=== PATIENT | female | born 1985 | race Caucasian/White ===

== ENCOUNTER 2018-07-16 00:31 | Emergency (ER) | payer OTHER ==
[~2018-07-16] VITALS: Ht 160 cm; Wt 82.6 kg
--- NOTE | 2018-07-16 01:20 | PHYS DOC ---
Past Medical History Past Medical History: Migraines Adult General Chief Complaint Chief Complaint: HEADACHE HPI HPI Patient is a 33 year old F who presents with headache. She has a history of migraines and states that this most recent headache began on Saturday, and is usually triggered by weather changes. She states that shortly after the headache began a clock fell off the wall about five pounds hit her on top of forehead only. and hit her in the head which worsened the headache. The pain is a dull and heavy pain that is throughout the whole head. She reports some nausea and dizziness, along with double vision when she was struck with the clock. She denies any vomiting, constipation, diarrhea, fever, chills, or sharp stabbing sensations. Review of Systems Review of Systems Constitutional: Denies fever or chills [] Eyes: Denies change in visual acuity, redness, or eye pain [] HENT: Denies nasal congestion or sore throat [] Respiratory: Denies cough or shortness of breath [] Cardiovascular: No additional information not addressed in HPI [] GI: Denies abdominal pain, vomiting, bloody stools or diarrhea [] : Denies dysuria or hematuria [] Musculoskeletal: Denies back pain or joint pain [] Integument: Denies rash or skin lesions [] Neurologic: Reports headache [] Endocrine: Denies polyuria or polydipsia [] All other systems were reviewed and found to be within normal limits, except as documented in this note. Current Medications Current Medications Current Medications Medications (Trade) Dose Ordered Sig/Sally Start Time Stop Time Status Last Admin Dose Admin Benztropine Mesylate (Cogentin) 2 mg 1X ONCE 07/16/18 02:30 07/16/18 02:31 DC 07/16/18 02:24 2 MG Diphenhydramine HCl (Benadryl) 50 mg 1X ONCE 07/16/18 01:45 07/16/18 01:46 DC 07/16/18 01:46 50 MG Ketorolac Tromethamine (Toradol 15mg Vial) 15 mg 1X ONCE 07/16/18 01:45 07/16/18 01:46 DC 07/16/18 01:46 15 MG Prochlorperazine Edisylate (Compazine) 10 mg 1X ONCE 07/16/18 01:45 07/16/18 01:46 DC 07/16/18 01:46 10 MG Sodium Chloride 1,000 ml @ 1,000 mls/hr 1X ONCE 07/16/18 01:45 07/16/18 02:36 DC 07/16/18 01:47 1,000 MLS/HR Allergies Allergies Allergies Coded Allergies Type Severity Reaction Last Updated Verified No Known Drug Allergies 07/16/18 No Physical Exam Physical Exam Constitutional: Well developed, well nourished, no acute distress, non-toxic appearance. [] HENT: Normocephalic, atraumatic, bilateral external ears normal, oropharynx moist, no oral exudates, nose normal. [] Eyes: PERRLA, EOMI, conjunctiva normal, no discharge. [] Neck: Normal range of motion, no tenderness, supple, no stridor. [] Cardiovascular:Heart rate regular rhythm, no murmur [] Lungs & Thorax: Bilateral breath sounds clear to auscultation [] Abdomen: Bowel sounds normal, soft, no tenderness, no masses, no pulsatile masses. [] Skin: Warm, dry, no erythema, no rash. [] Back: No tenderness, no CVA tenderness. [] Extremities: No tenderness, no cyanosis, no clubbing, ROM intact, no edema. [] Neurologic: Alert and oriented X 3, normal motor function, normal sensory function, no focal deficits noted. [] Psychologic: Affect normal, judgement normal, mood normal. [] Current Patient Data Vital Signs Vital Signs Date Time Temp Pulse Resp B/P (MAP) Pulse Ox O2 Delivery O2 Flow Rate FiO2 07/16/18 02:25 71 24 99 07/16/18 00:50 98.5 158/88 (111) 98.5 Lab Values Laboratory Tests Test 07/16/18 01:01 POC Urine HCG, Qualitative Hcg negative (Negative) EKG EKG [] Course & Med Decision Making Course & Med Decision Making Pertinent Labs and Imaging studies reviewed. (See chart for details) []Patient is neuro intact his symptoms most consistent with migraine did get hit by a clock but no loss of consciousness by [place] head CT rule no need for imaging TMs were clear bilaterally patient was given usual migraine cocktail despite the Benadryl she still had some akathisia with Compazine we then gave Cogentin and she felt much better and was discharged home in improved condition Dragon Disclaimer Dragon Disclaimer This electronic medical record was generated, in whole or in part, using a voice recognition dictation system. Departure Departure Impression: Primary Impression: Migraine Disposition: HOME, SELF-CARE Condition: STABLE Referrals: UNKNOWN PCP NAME (PCP) LISA NATION MD July 16, 2018 01:20
[2018-07-16] MEDS ORDERED: PROCHLORPERAZINE 10 MG/2 ML VIAL. IV ONE (01:45)
[2018-07-16] MEDS ORDERED: KETOROLAC 15 MG/ML VIAL. IV ONE (01:45)
[2018-07-16] MEDS ORDERED: diphenhydrAMINE 50 MG/ML VIAL IVP ONE (01:45)
[2018-07-16] MEDS ORDERED: IV NORMAL SALINE 1000ML BAG 1,000 ML IV ONE (01:45)
[2018-07-16 02:25] VITALS: BP 136/89
[2018-07-16] MEDS ORDERED: BENZTROPINE MESYLATE 2 MG/2 ML VIAL. IV ONE (02:30)
== END 2018-07-16 02:36 | disposition home or self-care (01) ==
LOC: ER 00:31
DX: G43.909 Migraine, unspecified, not intractable, without status migrainosus (principal); R42 Dizziness and giddiness; R11.0 Nausea; W20.8XXA Other cause of strike by thrown, projected or falling object, initial encounter; Y93.89 Activity, other specified; Y92.89 Other specified places as the place of occurrence of the external cause; Y99.8 Other external cause status
CPT/HCPCS: 81025; 96361; 96374; 96375; 99284; J0515; J0780; J1200; J1885; J7030

== ENCOUNTER 2019-03-05 10:10 | Emergency (ER) | payer OTHER ==
[2019-03-05] MEDS ORDERED: IBUPROFEN 400 MG TABLET. PO ONE (10:45)
[2019-03-05] MEDS ORDERED: IPRATRPIUM/ALBUTEROL 0.5/2.5MG 3 ML NEBU. NEB ONE (10:45)
[2019-03-05] MEDS ORDERED: ALBUTEROL SULFATE 2.5 MG/3 ML NEBU. NEB ONE (10:45)
[2019-03-05 11:15] LABS: BILIRUBIN,URINE NEGATIVE (NEG); CLARITY,URINE CLEAR; COLOR,URINE YELLOW; NITRITE,URINE POSITIVE (NEG); PROTEIN,URINE 30 mg/dL (NEG-TRACE)
[2019-03-05 11:25] LABS: SQUAMOUS EPITHELIAL CELL,UR FEW /LPF
[2019-03-05 11:26] LABS: BACTERIA,URINE MANY /HPF (0-FEW)
--- NOTE | 2019-03-05 11:26 | RAD ---
AP and Lateral Views of the Chest 03/05/2019 10:44 AM Indication: Cough, fever x5 days. Comparison: None Findings: There is no focal consolidation or infiltrate identified. The cardiomediastinal silhouette is within normal limits. There is no evidence of pneumothorax or pleural effusion. No acute osseous abnormalities are identified. Impression: No evidence of acute cardiopulmonary process. Electronically signed by: Darius Dumont MD (03/05/2019 11:23 AM) [id number]
[2019-03-05 11:27] LABS: HYALINE CASTS, URINE FEW /HPF
--- NOTE | 2019-03-05 11:32 | PHYS DOC ---
Past Medical History Past Medical History: Migraines Alcohol Use: None Adult General Chief Complaint Chief Complaint: FEVER HPI HPI Patient is a 34 year old female, accompanied by her significant other, who presents to the emergency department with complaints of a productive cough with white sputum, congestion, fatigue, body aches, shortness of breath, fever, and episodes of confusion for the last 5 days. Patient states she does smoke about half pack cigarettes a day. She denies any nausea, vomiting, diarrhea, rash, abdominal pain, increased urinary frequency, hematuria, dysuria, or back pain. She is alert and oriented to person, place, situation, and year at this time. Review of Systems Review of Systems Constitutional: see HPI Eyes: Denies change in visual acuity, redness, or eye pain; see HPI [] HENT: Denies nasal congestion or sore throat [] Respiratory: See HPI Cardiovascular: No additional information not addressed in HPI [] GI: Denies abdominal pain, nausea, vomiting, or diarrhea [] : Denies dysuria or hematuria [] Musculoskeletal: Denies back pain or joint pain [] Integument: Denies rash or skin lesions [] Neurologic: Denies headache, focal weakness or sensory changes; see HPI [] Complete systems were reviewed and found to be within normal limits, except as documented in this note. Current Medications Current Medications Current Medications Medications (Trade) Dose Ordered Sig/Sally Start Time Stop Time Status Last Admin Dose Admin Albuterol Sulfate (Ventolin Neb Soln) 2.5 mg 1X ONCE 03/05/19 10:45 03/05/19 10:47 DC 03/05/19 11:05 2.5 MG Albuterol/ Ipratropium (Duoneb) 3 ml 1X ONCE 03/05/19 10:45 03/05/19 10:47 DC 03/05/19 11:05 3 ML Ceftriaxone Sodium (Rocephin) 1 gm 1X ONCE 03/05/19 12:30 03/05/19 12:32 DC 03/05/19 12:55 1 GM Ibuprofen (Motrin) 600 mg 1X ONCE 03/05/19 10:45 03/05/19 10:47 DC 03/05/19 11:13 600 MG Methylprednisolone Sodium Succinate (SOLU-Medrol 125MG VIAL) 125 mg 1X ONCE 03/05/19 12:00 03/05/19 12:01 DC 03/05/19 12:55 125 MG Sodium Chloride 1,000 ml @ 1,000 mls/hr 1X ONCE 03/05/19 12:00 03/05/19 12:59 DC 03/05/19 12:56 1,000 MLS/HR Allergies Allergies Allergies Coded Allergies Type Severity Reaction Last Updated Verified No Known Drug Allergies 07/16/18 No Physical Exam Physical Exam Constitutional: Well developed, well nourished, no acute distress, non-toxic appearance. [] HENT: Normocephalic, atraumatic, bilateral external ears normal, Bilateral TMs normal, posterior pharynx normal, oropharynx moist, no oral exudates, nose normal. [] Eyes: PERRLA, EOMI, conjunctiva normal, no discharge. [] Neck: Normal range of motion, no stridor. [] Cardiovascular:Heart rate regular tachycardic rhythm, no murmur [] Lungs & Thorax: Bilateral breath sounds coarse and diminished bilaterally, Respirations even and unlabored, no retractions, no respiratory distress Abdomen: soft, no tenderness, no masses, no pulsatile masses. [] Skin: Flushed, hot, dry, no rash Back: No CVA tenderness. [] Extremities: No cyanosis, no clubbing, ROM intact, no edema. [] Neurologic: Alert and oriented X 3, normal motor function, normal sensory function, no focal deficits noted. [] Psychologic: Affect normal, judgement normal, mood normal. [] Current Patient Data Vital Signs Vital Signs Date Time Temp Pulse Resp B/P (MAP) Pulse Ox O2 Delivery O2 Flow Rate FiO2 03/05/19 15:41 94 16 144/62 (89) 96 Room Air 03/05/19 13:41 2.0 03/05/19 13:10 97.7 97.7 Lab Values Laboratory Tests Test 03/05/19 11:00 03/05/19 11:07 03/05/19 12:16 03/05/19 14:25 Urine Collection Type Unknown Urine Color Yellow Urine Clarity Clear Urine pH 6.0 Urine Specific Dailey 1.010 Urine Protein 30 mg/dL (NEG-TRACE) Urine Glucose (UA) Negative mg/dL (NEG) Urine Ketones (Stick) Negative mg/dL (NEG) Urine Blood Trace (NEG) Urine Nitrite Positive (NEG) Urine Bilirubin Negative (NEG) Urine Urobilinogen Dipstick 1.0 mg/dL (0.2 mg/dL) Urine Leukocyte Esterase Moderate (NEG) Urine RBC 1-2 /HPF (0-2) Urine WBC 5-10 /HPF (0-4) Urine Squamous Epithelial Cells Few /LPF Urine Bacteria Many /HPF (0-FEW) Urine Hyaline Casts Few /HPF Urine Mucus Slight /LPF Urine Opiates Screen Neg (NEG) Urine Methadone Screen Neg (NEG) Urine Barbiturates Neg (NEG) Urine Phencyclidine Screen Neg (NEG) Urine Amphetamine/Methamphetamine Neg (NEG) Urine Benzodiazepines Screen Neg (NEG) Urine Cocaine Screen Neg (NEG) Urine Cannabinoids Screen Neg (NEG) Urine Ethyl Alcohol Neg (NEG) POC Urine HCG, Qualitative Hcg negative (Negative) White Blood Count 7.9 x10^3/uL (4.0-11.0) Red Blood Count 4.74 x10^6/uL (3.50-5.40) Hemoglobin 12.5 g/dL (12.0-15.5) Hematocrit 37.4 % (36.0-47.0) Mean Corpuscular Volume 79 fL (79-100) Mean Corpuscular Hemoglobin 26 pg (25-35) Mean Corpuscular Hemoglobin Concent 33 g/dL (31-37) Red Cell Distribution Width 15.2 % (11.5-14.5) H Platelet Count 247 x10^3/uL (140-400) Neutrophils (%) (Auto) 54 % (31-73) Lymphocytes (%) (Auto) 32 % (24-48) Monocytes (%) (Auto) 10 % (0-9) H Eosinophils (%) (Auto) 3 % (0-3) Basophils (%) (Auto) 1 % (0-3) Neutrophils # (Auto) 4.3 x10^3/uL (1.8-7.7) Lymphocytes # (Auto) 2.5 x10^3/uL (1.0-4.8) Monocytes # (Auto) 0.8 x10^3/uL (0.0-1.1) Eosinophils # (Auto) 0.2 x10^3/uL (0.0-0.7) Basophils # (Auto) 0.0 x10^3/uL (0.0-0.2) Sodium Level 134 mmol/L (136-145) L Potassium Level 3.4 mmol/L (3.5-5.1) L Chloride Level 100 mmol/L (98-107) Carbon Dioxide Level 26 mmol/L (21-32) Anion Gap 8 (6-14) Blood Urea Nitrogen 10 mg/dL (7-20) Creatinine 1.0 mg/dL (0.6-1.0) Estimated GFR (Cockcroft-Gault) 63.9 BUN/Creatinine Ratio 10 (6-20) Glucose Level 103 mg/dL (70-99) H Calcium Level 8.4 mg/dL (8.5-10.1) L Magnesium Level 1.9 mg/dL (1.8-2.4) Total Bilirubin 0.3 mg/dL (0.2-1.0) Aspartate Amino Transferase (AST) 24 U/L (15-37) Alanine Aminotransferase (ALT) 19 U/L (14-59) Alkaline Phosphatase 76 U/L (46-116) Total Protein 7.9 g/dL (6.4-8.2) Albumin 3.2 g/dL (3.4-5.0) L Albumin/Globulin Ratio 0.7 (1.0-1.7) L Influenza Type A Antigen Negative (NEGATIVE) Influenza Type B Antigen Negative (NEGATIVE) Laboratory Tests 03/05/19 12:16 Laboratory Tests 03/05/19 12:16 EKG EKG 1210- Sinus tach rate 105, non-specific T abnormality, no STEMI read by Dr. Phillips [] Radiology/Procedures Radiology/Procedures PROCEDURE: CHEST PA & LATERAL AP and Lateral Views of the Chest 03/05/2019 10:44 AM Indication: Cough, fever x5 days. Comparison: None Findings: There is no focal consolidation or infiltrate identified. The cardiomediastinal silhouette is within normal limits. There is no evidence of pneumothorax or pleural effusion. No acute osseous abnormalities are identified. Impression: No evidence of acute cardiopulmonary process. [ PROCEDURE: CT HEAD WO CONTRAST EXAM: Head CT without contrast. HISTORY: Syncope. Confusion. TECHNIQUE: Computed tomographic images of the head were obtained without contrast. *One or more of the following individualized dose reduction techniques were utilized for this examination: 1. Automated exposure control. 2. Adjustment of the mA and/or kV according to patient size. 3. Use of iterative reconstruction technique. COMPARISON: None. FINDINGS: There is no acute or subacute extra-axial or intraparenchymal hemorrhage. There is no mass effect or midline shift. There is no hydrocephalus. The escobar-white matter differentiation pattern is intact. The visualized portions of the orbits, paranasal sinuses and mastoid air cells are unremarkable. No suspicious calvarial lesion is seen. IMPRESSION: No acute intracranial findings. ] Course & Med Decision Making Course & Med Decision Making Pertinent Labs and Imaging studies reviewed. (See chart for details) 1140- While at bedside to discuss CXR and UA results with patient, she now reports that she saw a cat in the emergency department. She also states that she has had several syncopal episodes while walking at home over the last few days. Pt states she will be walking and suddenly pass out against a wall. She denies any head injury or extremity pain. Pt denies any chest pain or palpitations. Pt advised that we will need to do additional testing and she will need to be moved to a different area. [address] Weeks who is the admitting physician, and care was assumed following discussion of patient. Patient's vital signs stable. Patient remains afebrile, appears nontoxic, respirations even and unlabored. Patient will be admitted to the med/surg floor. Patient's case and plan of care also discussed with Dr. Phillips 1620- Pt took out her own IV and tried to go outside and smoke a cigarette. Pt stated she needed some fresh air. I offered pt some Ativan for anxiety, advised pt that this is a non-smoking campus and offered a nicotine patch. Pt declines these medications and refused to go back to room. Pt left AMA, nursing staff aware. Will notify Dr. Colón. 1717- Spoke with Dr. Colón and advised of patient leaving AMA [] Dragon Disclaimer Dragon Disclaimer This electronic medical record was generated, in whole or in part, using a voice recognition dictation system. Departure Departure Impression: Primary Impression: Left against medical advice Additional Impressions: UTI (urinary tract infection) Visual hallucinations Fever Disposition: 07 AGAINST MEDICAL ADVICE Admitting Physician: PROMISE SANDOVAL) Condition: STABLE Referrals: UNKNOWN PCP NAME (PCP) Problem Qualifiers Additional Impressions: UTI (urinary tract infection) Urinary tract infection type: acute cystitis Hematuria presence: without hematuria Qualified Codes: N30.00 - Acute cystitis without hematuria Fever Fever type: unspecified Qualified Codes: R50.9 - Fever, unspecified SUSI SHANNON [employer] Mar 05, 2019 11:32
[2019-03-05] MEDS ORDERED: IV NORMAL SALINE 1000ML BAG 1,000 ML IV ONE (12:00)
[2019-03-05] MEDS ORDERED: methylPREDNISolone SOD SUCC PF 125 MG/2 ML VIAL. IV ONE (12:00)
--- NOTE | 2019-03-05 12:15 | EKG ---
[facility] [address] [place] [address] Test Date: 2019-03-05 Test Time: 12:10:54 Pat Name: LÁZARO VALDES Department: Room: Gender: F Animal Attendant: : 1985 Requested By: SUSI SHANNON Order Number: [id number] Reading MD: Measurements Intervals [place] Rate: 105 P: 17 ME: 116 QRS: 14 QRSD: 80 T: 22 QT: 326 QTc: 434 Interpretive Statements SINUS TACHYCARDIA NON SPECIFIC T ABNORMALITY BORDERLINE ECG No previous ECG available for comparison
[2019-03-05] MEDS ORDERED: cefTRIAXone IV Push 1 GM VIAL. IVP ONE (12:30)
[2019-03-05 12:42] LABS: CALCIUM 8.4 mg/dL (8.5-10.1); GFR 63.9; POTASSIUM 3.4 mmol/L (3.5-5.1)
[2019-03-05 12:44] LABS: BASO % 1 % (0-3); EOS # 0.2 x10^3/uL (0.0-0.7); EOS % 3 % (0-3); HEMATOCRIT 37.4 % (36.0-47.0); HEMOGLOBIN 12.5 g/dL (12.0-15.5); LYMPH # 2.5 x10^3/uL (1.0-4.8); LYMPH % 32 % (24-48); MEAN CORPUSCULAR HEMOGLOBIN 26 pg (25-35); MEAN CORPUSCULAR HGB CONC 33 g/dL (31-37); MEAN CORPUSCULAR VOLUME 79 fL (79-100); MONO # 0.8 x10^3/uL (0.0-1.1); MONO % 10 % (0-9); NEUT # 4.3 x10^3/uL (1.8-7.7); NEUT % 54 % (31-73); PLATELET COUNT 247 x10^3/uL (140-400); RED BLOOD COUNT 4.74 x10^6/uL (3.50-5.40); RED CELL DISTRIBUTION WIDTH 15.2 % (11.5-14.5); WHITE BLOOD COUNT 7.9 x10^3/uL (4.0-11.0)
[2019-03-05 12:48] LABS: ALBUMIN 3.2 g/dL (3.4-5.0); ALBUMIN/GLOBULIN RATIO 0.7 (1.0-1.7); MAGNESIUM 1.9 mg/dL (1.8-2.4); TOTAL BILIRUBIN 0.3 mg/dL (0.2-1.0); TOTAL PROTEIN 7.9 g/dL (6.4-8.2)
--- NOTE | 2019-03-05 12:56 | RAD ---
EXAM: Head CT without contrast. HISTORY: Syncope. Confusion. TECHNIQUE: Computed tomographic images of the head were obtained without contrast. *One or more of the following individualized dose reduction techniques were utilized for this examination: 1. Automated exposure control. 2. Adjustment of the mA and/or kV according to patient size. 3. Use of iterative reconstruction technique. COMPARISON: None. FINDINGS: There is no acute or subacute extra-axial or intraparenchymal hemorrhage. There is no mass effect or midline shift. There is no hydrocephalus. The escobar-white matter differentiation pattern is intact. The visualized portions of the orbits, paranasal sinuses and mastoid air cells are unremarkable. No suspicious calvarial lesion is seen. IMPRESSION: No acute intracranial findings. Electronically signed by: Marian Mcdonnell MD (03/05/2019 12:53 PM) [place] [id number]
[2019-03-05 13:57] LABS: BARBITURATES NEG (NEG); BENZODIAZEPINES NEG (NEG); CANNABINOIDS NEG (NEG); COCAINE NEG (NEG); METHADONE NEG (NEG); OPIATES NEG (NEG); PHENCYCLIDINE NEG (NEG)
[2019-03-05 14:02] LABS: AMPHETAMINE/METHAMPHETAMINE NEG (NEG)
[2019-03-05 14:54] LABS: INFLUENZA A PATIENT NEGATIVE (NEGATIVE); INFLUENZA B PATIENT NEGATIVE (NEGATIVE)
[2019-03-05 15:41] VITALS: BP 144/62
== END 2019-03-05 16:20 | disposition left against medical advice (07) ==
LOC: ER 10:10
DX: N39.0 Urinary tract infection, site not specified (principal); R44.1 Visual hallucinations; G43.909 Migraine, unspecified, not intractable, without status migrainosus; R55 Syncope and collapse
CPT/HCPCS: 36415; 70450; 71046; 80053; 80307; 81001; 81025; 83735; 85025; 87086; 87804; 93005; 94640; 96361; 96374; 96375; 99285; J0696; J2930; J7030; J7613; J7620; 87186